=== PATIENT | female | born 1960 | race Caucasian/White ===

== ENCOUNTER 2017-10-14 12:01 | Day surgery (SDC) | payer OTHER ==
[~2017-10-14] VITALS: Ht 162.6 cm; Wt 82.4 kg
[~2017-10-14 12:01] MED LIST: AMLO5 PO; AMOCLA875 PO; ASPI81CH PO; ASPI81EC PO; ATOR20 PO; ATORVASTATIN CA20 MG PO; Amox Tr-K Clv1 EAC2 PO; Aspir 8181 MG PO; BENZ100A PO; CALCA500CH PO; CEPH500 PO; CETI5 PO; CHOL10002 PO; CIPR500 PO; CLOP75 PO; CODACE30 PO; CODACE60 PO; Citalopram HBr20 MG PO; Colace100 MG PO; Cyclobenzaprine5 MG PO; DOCU100 PO; Dilaudid 2 mg Ta2 MG PO; FLUC150A PO; HYDACE25S PR; HYDACE5 PO; HYDMOR2 PO; HYDMOR4 PO; IBUP200 PO; IBUP800 PO; INSULANPEN; INSULANPEN SC; LISI20 PO; LORA1 PO; LOSA50 PO; LOSARTAN POTASS50 MG PO; Lopressor 25 mg25 MG PO; MAGNESIUM250 MG PO; METF500 PO; METFORMIN HCL500 M1 PO; METO10 PO; METPRE4DP PO; METR250 PO; METR500 PO; Metformin HCl1000 MG PO; NAPR500 PO; OLME20 PO; OMEP20ER PO; ONDA4 PO; PREG100 PO; PREG25 PO; PROC10 PO; PROM25 PO; PSYL5.85P PO; Pravachol40 MG PO; RXHYDMOR2 PO; RXTRAM50 PO; SITA25T2 PO; SULTRIDS PO; TOCO400 PO; TRAM50 PO; TRIA80TC TOP; Ultram50 MG PO
[2017-10-14] MEDS ORDERED: GLIP5 (12:51)
[2018-06-30] MEDS ORDERED: ALBU90OI INH (13:29)
[2018-06-30] MEDS ORDERED: MUPIROCIN15 GM TP (13:30)
[2018-06-30] MEDS ORDERED: URSO300 PO (13:31)
[2018-06-30] MEDS ORDERED: ACETAMINOPHEN500 MG PO (13:31)
[2018-06-30] MEDS ORDERED: INSULANPEN (13:32)
[2018-06-30] MEDS ORDERED: HYDPAM25 PO (13:32)
[2018-06-30] MEDS ORDERED: GLIP5 PO (13:33)
[2018-06-30] MEDS ORDERED: Aspirin EC81 MG PO (13:33)
[2018-06-30] MEDS ORDERED: MAGNESIUM250 MG PO (13:33)
[2018-06-30] MEDS ORDERED: VITAMIN D32000 UNIT PO (13:33)
[2018-06-30] MEDS ORDERED: Pravachol80 MG PO (13:34)
[2018-06-30] MEDS ORDERED: METOPROLOL TA37.5 MG PO (13:34)
[2018-06-30] MEDS ORDERED: BENTYL PO (13:35)
[2018-06-30] MEDS ORDERED: CLOTRIMAZOLE TOP (13:36)
[2018-06-30] MEDS ORDERED: PREG50 PO (13:37)
[2018-06-30] MEDS ORDERED: Diclofenac Pota50 MG PO (13:37)
[2018-06-30] MEDS ORDERED: Tessalon200 MG PO (13:38)
[2018-07-05] MEDS ORDERED: HYDMOR4 PO (14:54)
[2018-07-05] MEDS ORDERED: Zofran Odt4 MG SL (14:54)
[2018-08-27] MEDS ORDERED: FENT200LOZ MM (10:27)
[2018-08-27] MEDS ORDERED: ONDA4ODT MM (10:27)
== END 2017-10-14 14:48 | disposition home or self-care (01) ==
LOC: ORSCSDS 12:01
PROVIDERS: Internal Medicine Gastroenterology
PROC: 0DBH8ZX Excision of Cecum, Via Natural or Artificial Opening Endoscopic, Diagnostic (ICD-10-PCS; principal; 2017-10-14 13:15)
PROC: 0DBM8ZX Excision of Descending Colon, Via Natural or Artificial Opening Endoscopic, Diagnostic (ICD-10-PCS; principal; 2017-10-14 13:15)
PROC: 0DBK8ZX Excision of Ascending Colon, Via Natural or Artificial Opening Endoscopic, Diagnostic (ICD-10-PCS; principal; 2017-10-14 13:15)
DX: R10.30 Lower abdominal pain, unspecified (principal); D12.4 Benign neoplasm of descending colon; D12.0 Benign neoplasm of cecum; D12.2 Benign neoplasm of ascending colon; R19.4 Change in bowel habit; R11.0 Nausea; I10 Essential (primary) hypertension; E11.9 Type 2 diabetes mellitus without complications; E78.00 Pure hypercholesterolemia, unspecified; Z87.891 Personal history of nicotine dependence; Z79.82 Long term (current) use of aspirin; Z79.899 Other long term (current) drug therapy
CPT/HCPCS: 82947; 88305; J7120

== ENCOUNTER 2018-05-11 21:12 | Emergency (ER) | payer OTHER ==
[~2018-05-11] VITALS: Ht 162.6 cm; Wt 82.5 kg
[~2018-05-11 21:12] MED LIST changes: +GLIP5
[2018-05-11] MEDS ORDERED: PREG50 PO (21:23)
== END 2018-05-11 22:30 | disposition home or self-care (01) ==
LOC: ER 21:12
DX: S63.501A Unspecified sprain of right wrist, initial encounter (principal); E11.9 Type 2 diabetes mellitus without complications; I10 Essential (primary) hypertension; Z88.8 Allergy status to other drugs, medicaments and biological substances; Z88.5 Allergy status to narcotic agent; Z79.899 Other long term (current) drug therapy; Z79.82 Long term (current) use of aspirin; Z79.4 Long term (current) use of insulin; W01.0XXA Fall on same level from slipping, tripping and stumbling without subsequent striking against object, initial encounter
CPT/HCPCS: 73110; 99283-25

== ENCOUNTER → 2018-06-18 | Outpatient (CLI) | payer OTHER ==
[~2018-06-18] MED LIST changes: +PREG50 PO
[2018-06-22 15:07] LABS: HPV 16 Negative (Negative); HPV 18 Negative (Negative); HPV OTHER HR TYPES Negative (Negative)
== END | disposition home or self-care (01) ==
LOC: LAB SHORT 11:53 → LAB 11:53
PROVIDERS: Family Medicine
DX: Z01.419 Encounter for gynecological examination (general) (routine) without abnormal findings (principal); N95.9 Unspecified menopausal and perimenopausal disorder
CPT/HCPCS: 87624; G0145

== ENCOUNTER 2019-01-12 09:21 | Day surgery (SDC) | payer OTHER ==
[~2019-01-12] VITALS: Ht 162.6 cm; Wt 88.2 kg
[~2019-01-12 09:21] MED LIST changes: +ACETAMINOPHEN500 MG PO; +ALBU90OI INH; +Aspirin EC81 MG PO; +BENTYL PO; +CLOTRIMAZOLE TOP; +Diclofenac Pota50 MG PO; +FENT200LOZ MM; +GLIP5 PO; +HYDPAM25 PO; +METOPROLOL TA37.5 MG PO; +MUPIROCIN15 GM TP; +ONDA4ODT MM; +Pravachol80 MG PO; +Tessalon200 MG PO; +URSO300 PO; +VITAMIN D32000 UNIT PO; +Zofran Odt4 MG SL
== END 2019-01-12 11:30 | disposition home or self-care (01) ==
LOC: ORSCSDS 09:21
PROVIDERS: Internal Medicine Gastroenterology
PROC: 0DB68ZX Excision of Stomach, Via Natural or Artificial Opening Endoscopic, Diagnostic (ICD-10-PCS; principal; 2019-01-12 10:30)
DX: R10.84 Generalized abdominal pain (principal); K29.80 Duodenitis without bleeding; K31.89 Other diseases of stomach and duodenum; K74.60 Unspecified cirrhosis of liver; K29.50 Unspecified chronic gastritis without bleeding; F41.8 Other specified anxiety disorders; K76.6 Portal hypertension; E11.9 Type 2 diabetes mellitus without complications; I10 Essential (primary) hypertension; E78.5 Hyperlipidemia, unspecified; G47.33 Obstructive sleep apnea (adult) (pediatric); E66.9 Obesity, unspecified; Z68.33 Body mass index [BMI] 33.0-33.9, adult; Z79.82 Long term (current) use of aspirin; Z79.4 Long term (current) use of insulin; Z79.899 Other long term (current) drug therapy
CPT/HCPCS: 82947; 88305; 88342; J2704; J7120

== ENCOUNTER → 2020-07-05 | Outpatient (CLI) | payer OTHER ==
[~2020-07-05] MED LIST changes: +BASAGLAR K100 UNIT/1 SC; +BETA.05TCA TOP; +CLOB.05TO; +CYCL10 PO; +DOXY100 PO; +FURO20 PO; +GUAI600T33 PO; +HYDHCL25 PO; +METFORMIN HCL500 M2 PO; +METOPROLOL TART25 MG PO; +POTA10T PO; +PREGABALIN100 MG PO; +TRULICITY0.75 MG/01 SC
[2020-07-05 19:02] LABS: BASOPHILS ABSOLUTE AUTO 0.03 K/mm3 (0.00-0.23); BASOPHILS PERCENT AUTO 1 % (0-2); EOSINOPHILS PERCENT AUTO 6 % (0-6); Hematocrit 35.1 % (33.0-51.0); Hemoglobin 10.8 g/dL (11.5-16.0); IMMATURE GRAN ABSOLUTE AUTO 0.02 K/mm3 (0.00-0.10); IMMATURE GRAN PERCENT AUTO 1 % (0-1); LYMPHOCYTES ABSOLUTE AUTO 1.44 K/mm3 (0.84-5.20); LYMPHOCYTES PERCENT AUTO 40 % (21-46); MONOCYTES ABSOLUTE AUTO 0.29 K/mm3 (0.16-1.47); MONOCYTES PERCENT AUTO 8 % (4-13); Mean Corpuscular HGB 24.3 pg (26.0-34.0); Mean Corpuscular HGB Conc 30.8 g/dL (31.5-36.5); Mean Corpuscular Volume 79 fL (80-100); Mean Platelet Volume 10.6 fL (9.1-12.4); NEUTROPHILS ABSOLUTE AUTO 1.65 K/mm3 (1.96-9.15); NEUTROPHILS PERCENT AUTO 45 % (41-73); Platelet Count 103 K/mm3 (150-400); RDW Coefficient Variation 17.1 % (11.7-14.2); RDW Standard Deviation 45.1 fL (35.1-46.3); Red Blood Cell Count 4.44 M/mm3 (3.80-5.20); White Blood Cell Count 3.63 K/mm3 (4.00-11.30)
[2020-07-05 19:48] LABS: Alanine Aminotransfer (ALT/SGP 40 U/L (12-78); Albumin, Blood 2.6 g/dL (3.4-5.0); Albumin/Globulin Ratio 0.8 (0.8-1.8); Alk Phos 176 U/L (50-136); Anion Gap 3 mmol/L (6-16); Aspartate Aminotrans (AST/SGOT 46 U/L (12-37); Bilirubin, Total 0.5 mg/dL (0.1-1.0); Blood Urea Nitrogen 15 mg/dL (8-24); CO2, Blood 30 mmol/L (21-32); Calcium, Blood 9.2 mg/dL (8.5-10.1); Chloride, Blood 111 mmol/L (98-108); Creatinine, Blood 0.65 mg/dL (0.40-1.00); Globulin, Blood 3.4 g/dL (2.2-4.0); Glomerular Filtration Rate >60 (60-); Glucose, Blood 176 mg/dL (70-99); Potassium, Blood 3.9 mmol/L (3.5-5.5); Sodium, Blood 144 mmol/L (136-145)
[2020-07-06 11:45] LABS: Troponin I 0.046 ng/mL (0.000-0.040)
== END ==
LOC: LAB 18:45 → LAB SHORT 18:45
PROVIDERS: Nurse Practitioner Family
DX: R06.02 Shortness of breath (principal); R05 Cough
CPT/HCPCS: 80053; 84484; 85025

== ENCOUNTER 2020-07-06 12:22 | Inpatient (IN) | payer OTHER ==
[~2020-07-06] VITALS: Ht 160 cm; Wt 90.7 kg
[~2020-07-06 12:22] MED LIST changes: -BETA.05TCA TOP; -CLOB.05TO; -CYCL10 PO; -DOXY100 PO; -FURO20 PO; -GUAI600T33 PO; -HYDHCL25 PO; -METFORMIN HCL500 M2 PO; -METOPROLOL TART25 MG PO; -POTA10T PO; -PREGABALIN100 MG PO; -TRULICITY0.75 MG/01 SC
[2020-07-06 12:47] LABS: BASOPHILS ABSOLUTE AUTO 0.03 K/mm3 (0.00-0.23); BASOPHILS PERCENT AUTO 1 % (0-2); EOSINOPHILS ABSOLUTE AUTO 0.11 K/mm3 (0.00-0.68); EOSINOPHILS PERCENT AUTO 2 % (0-6); Hematocrit 37.3 % (33.0-51.0); Hemoglobin 11.4 g/dL (11.5-16.0); IMMATURE GRAN ABSOLUTE AUTO 0.03 K/mm3 (0.00-0.10); IMMATURE GRAN PERCENT AUTO 1 % (0-1); LYMPHOCYTES ABSOLUTE AUTO 1.54 K/mm3 (0.84-5.20); LYMPHOCYTES PERCENT AUTO 30 % (21-46); MONOCYTES PERCENT AUTO 10 % (4-13); Mean Corpuscular HGB 24.5 pg (26.0-34.0); Mean Corpuscular HGB Conc 30.6 g/dL (31.5-36.5); Mean Corpuscular Volume 80 fL (80-100); Mean Platelet Volume 9.5 fL (9.1-12.4); NEUTROPHILS PERCENT AUTO 57 % (41-73); Platelet Count 97 K/mm3 (150-400); RDW Coefficient Variation 17.5 % (11.7-14.2); RDW Standard Deviation 45.9 fL (35.1-46.3); Red Blood Cell Count 4.66 M/mm3 (3.80-5.20); White Blood Cell Count 5.11 K/mm3 (4.00-11.30)
[2020-07-06] MEDS ORDERED: TRULICITY0.75 MG/01 SC (13:04)
[2020-07-06] MEDS ORDERED: URSO300 PO (13:05)
[2020-07-06 13:06] LABS: Alanine Aminotransfer (ALT/SGP 43 U/L (12-78); Albumin, Blood 2.8 g/dL (3.4-5.0); Albumin/Globulin Ratio 0.7 (0.8-1.8); Alk Phos 188 U/L (50-136); Anion Gap 6 mmol/L (6-16); Aspartate Aminotrans (AST/SGOT 52 U/L (12-37); Bilirubin, Total 0.8 mg/dL (0.1-1.0); Blood Urea Nitrogen 14 mg/dL (8-24); Bun/Creatinine Ratio 19.9 (12.0-20.0); CO2, Blood 26 mmol/L (21-32); Calcium, Blood 8.7 mg/dL (8.5-10.1); Chloride, Blood 109 mmol/L (98-108); Globulin, Blood 3.8 g/dL (2.2-4.0); Glomerular Filtration Rate >60 (60-); Glucose, Blood 235 mg/dL (70-99); Potassium, Blood 4.5 mmol/L (3.5-5.5); Sodium, Blood 141 mmol/L (136-145); Total Protein, Blood 6.6 g/dL (6.4-8.2); Troponin I 0.058 ng/mL (0.000-0.040)
[2020-07-06] MEDS ORDERED: BETA.05TCA TOP (13:07)
[2020-07-06] MEDS ORDERED: CLOB.05TO (13:08)
[2020-07-06] MEDS ORDERED: CYCL10 PO (13:08)
[2020-07-06] MEDS ORDERED: OMEP20ER PO (13:09)
[2020-07-06] MEDS ORDERED: BASAGLAR K100 UNIT/1 SC (14:45)
[2020-07-06] MEDS ORDERED: PREGABALIN100 MG PO (14:46)
[2020-07-06] MEDS ORDERED: METOPROLOL TART25 MG PO (14:47)
[2020-07-06] MEDS ORDERED: METFORMIN HCL500 M2 PO (14:48)
[2020-07-06] MEDS ORDERED: HYDHCL25 PO (14:48)
[2020-07-07 04:47] LABS: Hematocrit 32.4 % (33.0-51.0); Mean Corpuscular HGB 24.4 pg (26.0-34.0); Mean Corpuscular HGB Conc 30.9 g/dL (31.5-36.5); Mean Corpuscular Volume 79 fL (80-100); Mean Platelet Volume 10.5 fL (9.1-12.4); Platelet Count 76 K/mm3 (150-400); RDW Standard Deviation 46.5 fL (35.1-46.3)
[2020-07-07 05:09] LABS: Anion Gap 4 mmol/L (6-16); Blood Urea Nitrogen 18 mg/dL (8-24); Bun/Creatinine Ratio 29.8 (12.0-20.0); CO2, Blood 26 mmol/L (21-32); Calcium, Blood 8.1 mg/dL (8.5-10.1); Chloride, Blood 109 mmol/L (98-108); Glomerular Filtration Rate >60 (60-); Glucose, Blood 136 mg/dL (70-99); Sodium, Blood 139 mmol/L (136-145); Troponin I 0.051 ng/mL (0.000-0.040)
[2020-07-09 05:31] LABS: BASOPHILS ABSOLUTE AUTO 0.04 K/mm3 (0.00-0.23); BASOPHILS PERCENT AUTO 1 % (0-2); EOSINOPHILS ABSOLUTE AUTO 0.31 K/mm3 (0.00-0.68); EOSINOPHILS PERCENT AUTO 5 % (0-6); Hematocrit 31.6 % (33.0-51.0); Hemoglobin 9.8 g/dL (11.5-16.0); IMMATURE GRAN ABSOLUTE AUTO 0.05 K/mm3 (0.00-0.10); IMMATURE GRAN PERCENT AUTO 1 % (0-1); LYMPHOCYTES ABSOLUTE AUTO 1.24 K/mm3 (0.84-5.20); LYMPHOCYTES PERCENT AUTO 22 % (21-46); MONOCYTES ABSOLUTE AUTO 0.71 K/mm3 (0.16-1.47); MONOCYTES PERCENT AUTO 12 % (4-13); Mean Corpuscular HGB 25.1 pg (26.0-34.0); Mean Corpuscular Volume 81 fL (80-100); Mean Platelet Volume 10.2 fL (9.1-12.4); NEUTROPHILS ABSOLUTE AUTO 3.43 K/mm3 (1.96-9.15); NEUTROPHILS PERCENT AUTO 59 % (41-73); Platelet Count 69 K/mm3 (150-400); RDW Standard Deviation 50.8 fL (35.1-46.3); Red Blood Cell Count 3.91 M/mm3 (3.80-5.20); White Blood Cell Count 5.78 K/mm3 (4.00-11.30)
[2020-07-09 06:00] LABS: Percent Saturation 26.7 % (15.0-50.0)
[2020-07-09 06:06] LABS: Alanine Aminotransfer (ALT/SGP 25 U/L (12-78); Albumin, Blood 1.9 g/dL (3.4-5.0); Albumin/Globulin Ratio 0.5 (0.8-1.8); Alk Phos 123 U/L (50-136); Anion Gap 7 mmol/L (6-16); Aspartate Aminotrans (AST/SGOT 22 U/L (12-37); Blood Urea Nitrogen 23 mg/dL (8-24); Bun/Creatinine Ratio 36.6 (12.0-20.0); CO2, Blood 23 mmol/L (21-32); Calcium, Blood 8.2 mg/dL (8.5-10.1); Chloride, Blood 106 mmol/L (98-108); Creatinine, Blood 0.63 mg/dL (0.40-1.00); Globulin, Blood 3.5 g/dL (2.2-4.0); Glomerular Filtration Rate >60 (60-); Glucose, Blood 138 mg/dL (70-99); Potassium, Blood 4.4 mmol/L (3.5-5.5); Sodium, Blood 136 mmol/L (136-145); Total Protein, Blood 5.4 g/dL (6.4-8.2)
[2020-07-10 08:46] LABS: BASOPHILS ABSOLUTE AUTO 0.04 K/mm3 (0.00-0.23); BASOPHILS PERCENT AUTO 1 % (0-2); EOSINOPHILS PERCENT AUTO 7 % (0-6); Hematocrit 33.3 % (33.0-51.0); IMMATURE GRAN ABSOLUTE AUTO 0.02 K/mm3 (0.00-0.10); IMMATURE GRAN PERCENT AUTO 0 % (0-1); LYMPHOCYTES PERCENT AUTO 22 % (21-46); MONOCYTES ABSOLUTE AUTO 0.62 K/mm3 (0.16-1.47); MONOCYTES PERCENT AUTO 14 % (4-13); Mean Corpuscular HGB 24.6 pg (26.0-34.0); Mean Corpuscular Volume 82 fL (80-100); NEUTROPHILS ABSOLUTE AUTO 2.57 K/mm3 (1.96-9.15); NEUTROPHILS PERCENT AUTO 57 % (41-73); Platelet Count 88 K/mm3 (150-400); RDW Coefficient Variation 18.4 % (11.7-14.2); RDW Standard Deviation 53.1 fL (35.1-46.3); Red Blood Cell Count 4.06 M/mm3 (3.80-5.20); White Blood Cell Count 4.55 K/mm3 (4.00-11.30)
[2020-07-10 08:55] LABS: International Normalized Ratio 1.32; Prothrombin Time Results 13.9 Sec (9.7-11.5)
[2020-07-10 09:02] LABS: Albumin/Globulin Ratio 0.6 (0.8-1.8); Bilirubin, Total 0.6 mg/dL (0.1-1.0); Bun/Creatinine Ratio 29.6 (12.0-20.0); Calcium, Blood 8.6 mg/dL (8.5-10.1); Creatinine, Blood 1.08 mg/dL (0.40-1.00); Globulin, Blood 3.4 g/dL (2.2-4.0); Potassium, Blood 4.3 mmol/L (3.5-5.5); Total Protein, Blood 5.4 g/dL (6.4-8.2)
[2020-07-11 05:06] LABS: BASOPHILS ABSOLUTE AUTO 0.03 K/mm3 (0.00-0.23); BASOPHILS PERCENT AUTO 1 % (0-2); EOSINOPHILS ABSOLUTE AUTO 0.32 K/mm3 (0.00-0.68); EOSINOPHILS PERCENT AUTO 6 % (0-6); Hematocrit 31.4 % (33.0-51.0); IMMATURE GRAN ABSOLUTE AUTO 0.03 K/mm3 (0.00-0.10); IMMATURE GRAN PERCENT AUTO 1 % (0-1); LYMPHOCYTES ABSOLUTE AUTO 1.35 K/mm3 (0.84-5.20); LYMPHOCYTES PERCENT AUTO 23 % (21-46); MONOCYTES ABSOLUTE AUTO 0.79 K/mm3 (0.16-1.47); MONOCYTES PERCENT AUTO 14 % (4-13); Mean Corpuscular HGB 25.4 pg (26.0-34.0); Mean Corpuscular HGB Conc 31.8 g/dL (31.5-36.5); Mean Corpuscular Volume 80 fL (80-100); Mean Platelet Volume 9.4 fL (9.1-12.4); NEUTROPHILS ABSOLUTE AUTO 3.29 K/mm3 (1.96-9.15); NEUTROPHILS PERCENT AUTO 57 % (41-73); Platelet Count 96 K/mm3 (150-400); RDW Coefficient Variation 18.5 % (11.7-14.2); Red Blood Cell Count 3.94 M/mm3 (3.80-5.20); White Blood Cell Count 5.81 K/mm3 (4.00-11.30)
[2020-07-11 05:29] LABS: Alanine Aminotransfer (ALT/SGP 21 U/L (12-78); Albumin, Blood 1.8 g/dL (3.4-5.0); Albumin/Globulin Ratio 0.5 (0.8-1.8); Alk Phos 117 U/L (50-136); Anion Gap 9 mmol/L (6-16); Aspartate Aminotrans (AST/SGOT 24 U/L (12-37); Bilirubin, Total 0.6 mg/dL (0.1-1.0); Blood Urea Nitrogen 30 mg/dL (8-24); Bun/Creatinine Ratio 35.2 (12.0-20.0); CO2, Blood 22 mmol/L (21-32); Calcium, Blood 7.9 mg/dL (8.5-10.1); Chloride, Blood 104 mmol/L (98-108); Creatinine, Blood 0.85 mg/dL (0.40-1.00); Globulin, Blood 3.6 g/dL (2.2-4.0); Glomerular Filtration Rate >60 (60-); Glucose, Blood 96 mg/dL (70-99); Sodium, Blood 135 mmol/L (136-145); Total Protein, Blood 5.4 g/dL (6.4-8.2)
[2020-07-11 15:23] LABS: Automated BF RBC Count 0.056 M/mm3 (0-0); Automated BF WBC Count 2.774 K/mm3 (0-999); Body Fluid WBC Count 2774 /mm3 (0-999); RBC Count, Body Fluid 56000 /mm3 (0-0)
[2020-07-11 16:19] LABS: pH, Body Fluid 7.5
[2020-07-11 16:33] LABS: Total Cell Count, Body Fluid 100
[2020-07-11 16:34] LABS: Appearance, Body Fluid Bloody (Clear); Color, Body Fluid Red (None-Yellow)
[2020-07-11 16:51] LABS: Albumin, Body Fluid 0.9 g/dL; Glucose, Body Fluid 85 mg/dL; Lactate Dehydrogenase, Body Fl 382 U/L; Protein, Body Fluid 2.1 g/dL
[2020-07-12 08:18] LABS: BASOPHILS ABSOLUTE AUTO 0.03 K/mm3 (0.00-0.23); BASOPHILS PERCENT AUTO 1 % (0-2); EOSINOPHILS ABSOLUTE AUTO 0.23 K/mm3 (0.00-0.68); EOSINOPHILS PERCENT AUTO 4 % (0-6); Hematocrit 33.1 % (33.0-51.0); Hemoglobin 10.2 g/dL (11.5-16.0); IMMATURE GRAN ABSOLUTE AUTO 0.04 K/mm3 (0.00-0.10); IMMATURE GRAN PERCENT AUTO 1 % (0-1); LYMPHOCYTES ABSOLUTE AUTO 1.48 K/mm3 (0.84-5.20); LYMPHOCYTES PERCENT AUTO 27 % (21-46); MONOCYTES ABSOLUTE AUTO 0.83 K/mm3 (0.16-1.47); MONOCYTES PERCENT AUTO 15 % (4-13); Mean Corpuscular HGB 24.8 pg (26.0-34.0); Mean Corpuscular HGB Conc 30.8 g/dL (31.5-36.5); Mean Corpuscular Volume 80 fL (80-100); Mean Platelet Volume 9.3 fL (9.1-12.4); NEUTROPHILS ABSOLUTE AUTO 2.91 K/mm3 (1.96-9.15); NEUTROPHILS PERCENT AUTO 53 % (41-73); Platelet Count 123 K/mm3 (150-400); RDW Standard Deviation 51.8 fL (35.1-46.3); Red Blood Cell Count 4.12 M/mm3 (3.80-5.20); White Blood Cell Count 5.52 K/mm3 (4.00-11.30)
[2020-07-13 04:43] LABS: BASOPHILS ABSOLUTE AUTO 0.04 K/mm3 (0.00-0.23); BASOPHILS PERCENT AUTO 1 % (0-2); EOSINOPHILS ABSOLUTE AUTO 0.26 K/mm3 (0.00-0.68); EOSINOPHILS PERCENT AUTO 6 % (0-6); Hemoglobin 9.3 g/dL (11.5-16.0); IMMATURE GRAN ABSOLUTE AUTO 0.03 K/mm3 (0.00-0.10); IMMATURE GRAN PERCENT AUTO 1 % (0-1); LYMPHOCYTES ABSOLUTE AUTO 1.49 K/mm3 (0.84-5.20); LYMPHOCYTES PERCENT AUTO 36 % (21-46); MONOCYTES ABSOLUTE AUTO 0.57 K/mm3 (0.16-1.47); MONOCYTES PERCENT AUTO 14 % (4-13); Mean Corpuscular HGB 25.4 pg (26.0-34.0); Mean Corpuscular HGB Conc 32.1 g/dL (31.5-36.5); Mean Corpuscular Volume 79 fL (80-100); Mean Platelet Volume 9.2 fL (9.1-12.4); NEUTROPHILS ABSOLUTE AUTO 1.77 K/mm3 (1.96-9.15); NEUTROPHILS PERCENT AUTO 43 % (41-73); Platelet Count 102 K/mm3 (150-400); RDW Coefficient Variation 18.9 % (11.7-14.2); RDW Standard Deviation 52.7 fL (35.1-46.3); Red Blood Cell Count 3.66 M/mm3 (3.80-5.20); White Blood Cell Count 4.16 K/mm3 (4.00-11.30)
[2020-07-13 05:10] LABS: Alanine Aminotransfer (ALT/SGP 21 U/L (12-78); Albumin, Blood 1.7 g/dL (3.4-5.0); Albumin/Globulin Ratio 0.5 (0.8-1.8); Alk Phos 106 U/L (50-136); Anion Gap 8 mmol/L (6-16); Aspartate Aminotrans (AST/SGOT 34 U/L (12-37); Bilirubin, Total 0.5 mg/dL (0.1-1.0); Blood Urea Nitrogen 21 mg/dL (8-24); Bun/Creatinine Ratio 29.1 (12.0-20.0); CO2, Blood 23 mmol/L (21-32); Chloride, Blood 105 mmol/L (98-108); Creatinine, Blood 0.72 mg/dL (0.40-1.00); Globulin, Blood 3.4 g/dL (2.2-4.0); Glomerular Filtration Rate >60 (60-); Glucose, Blood 58 mg/dL (70-99); Potassium, Blood 3.7 mmol/L (3.5-5.5); Sodium, Blood 136 mmol/L (136-145); Total Protein, Blood 5.1 g/dL (6.4-8.2)
[2020-07-14 05:19] LABS: BASOPHILS ABSOLUTE AUTO 0.03 K/mm3 (0.00-0.23); BASOPHILS PERCENT AUTO 1 % (0-2); EOSINOPHILS ABSOLUTE AUTO 0.17 K/mm3 (0.00-0.68); EOSINOPHILS PERCENT AUTO 5 % (0-6); Hematocrit 27.8 % (33.0-51.0); Hemoglobin 8.7 g/dL (11.5-16.0); IMMATURE GRAN ABSOLUTE AUTO 0.02 K/mm3 (0.00-0.10); IMMATURE GRAN PERCENT AUTO 1 % (0-1); LYMPHOCYTES ABSOLUTE AUTO 0.93 K/mm3 (0.84-5.20); LYMPHOCYTES PERCENT AUTO 29 % (21-46); MONOCYTES PERCENT AUTO 13 % (4-13); Mean Corpuscular HGB 25.1 pg (26.0-34.0); Mean Corpuscular HGB Conc 31.3 g/dL (31.5-36.5); Mean Corpuscular Volume 80 fL (80-100); Mean Platelet Volume 9.5 fL (9.1-12.4); NEUTROPHILS ABSOLUTE AUTO 1.61 K/mm3 (1.96-9.15); NEUTROPHILS PERCENT AUTO 51 % (41-73); Platelet Count 90 K/mm3 (150-400); RDW Standard Deviation 54.4 fL (35.1-46.3); Red Blood Cell Count 3.47 M/mm3 (3.80-5.20); White Blood Cell Count 3.16 K/mm3 (4.00-11.30)
[2020-07-14 05:49] LABS: Alanine Aminotransfer (ALT/SGP 22 U/L (12-78); Albumin, Blood 1.8 g/dL (3.4-5.0); Albumin/Globulin Ratio 0.5 (0.8-1.8); Alk Phos 96 U/L (50-136); Anion Gap 8 mmol/L (6-16); Aspartate Aminotrans (AST/SGOT 40 U/L (12-37); Bilirubin, Total 0.5 mg/dL (0.1-1.0); Blood Urea Nitrogen 27 mg/dL (8-24); Bun/Creatinine Ratio 28.6 (12.0-20.0); CO2, Blood 23 mmol/L (21-32); Calcium, Blood 8.1 mg/dL (8.5-10.1); Chloride, Blood 104 mmol/L (98-108); Creatinine, Blood 0.94 mg/dL (0.40-1.00); Globulin, Blood 3.3 g/dL (2.2-4.0); Glomerular Filtration Rate >60 (60-); Glucose, Blood 87 mg/dL (70-99); Potassium, Blood 3.8 mmol/L (3.5-5.5); Sodium, Blood 135 mmol/L (136-145); Total Protein, Blood 5.1 g/dL (6.4-8.2)
[2020-07-14 21:23] LABS: Source, Urine Voided
[2020-07-14 21:27] LABS: Appearance, Urine Clear (Clear); Bilirubin, Urine Neg (Neg); Blood, Urine 1+ (Neg); Color, Urine Amber (P-Yellow); Glucose Qualitative, Urine Neg (Neg); Ketones, Urine Neg (Neg); Leukocyte Esterase, Urine 2+ (Neg); Nitrite, Urine Neg (Neg); Protein, Urine 1+ (Neg); Specific Gravity, Urine 1.025 (1.003-1.022); Urobilinogen, Urine NORM (Normal)
[2020-07-14 21:34] LABS: Bacteria Mod /hpf; Hyaline Casts 0-2 /lpf (0-2); Red Blood Cells, Urine 0-2 /hpf (0-2); Squamous Epithelial Cells Few /hpf (Few)
[2020-07-15 05:27] LABS: Hematocrit 30.6 % (33.0-51.0); Hemoglobin 9.8 g/dL (11.5-16.0); Mean Corpuscular HGB 25.5 pg (26.0-34.0); Mean Corpuscular Volume 80 fL (80-100); Platelet Count 102 K/mm3 (150-400); RDW Coefficient Variation 19.2 % (11.7-14.2); RDW Standard Deviation 54.1 fL (35.1-46.3); Red Blood Cell Count 3.84 M/mm3 (3.80-5.20); White Blood Cell Count 4.13 K/mm3 (4.00-11.30)
[2020-07-15 05:55] LABS: Anion Gap 8 mmol/L (6-16); Blood Urea Nitrogen 23 mg/dL (8-24); Bun/Creatinine Ratio 30.1 (12.0-20.0); CO2, Blood 23 mmol/L (21-32); Calcium, Blood 8.6 mg/dL (8.5-10.1); Chloride, Blood 107 mmol/L (98-108); Creatinine, Blood 0.76 mg/dL (0.40-1.00); Glomerular Filtration Rate >60 (60-); Glucose, Blood 81 mg/dL (70-99); Potassium, Blood 4.1 mmol/L (3.5-5.5); Sodium, Blood 138 mmol/L (136-145)
[2020-07-16] MEDS ORDERED: FURO20 PO (14:04)
[2020-07-16] MEDS ORDERED: DOXY100 PO (14:04)
[2020-07-16] MEDS ORDERED: GUAI600T33 PO (14:05)
[2020-07-16] MEDS ORDERED: POTA10T PO (14:06)
== END 2020-07-16 15:28 | disposition home health service (06) | DRG 871 ==
LOC: ER 12:22 → MEDS 15:28
PROVIDERS: Emergency Medicine; Internal Medicine; ADMIT Internal Medicine
PROC: 0W993ZZ Drainage of Right Pleural Cavity, Percutaneous Approach (ICD-10-PCS; principal; 2020-07-11)
DX: A41.9 Sepsis, unspecified organism (principal); J96.01 Acute respiratory failure with hypoxia; J18.9 Pneumonia, unspecified organism; I50.33 Acute on chronic diastolic (congestive) heart failure; E87.2 Acidosis; I24.8 Other forms of acute ischemic heart disease; R65.20 Severe sepsis without septic shock; K74.69 Other cirrhosis of liver; Z95.1 Presence of aortocoronary bypass graft; E11.9 Type 2 diabetes mellitus without complications; I11.0 Hypertensive heart disease with heart failure; Z20.828 Contact with and (suspected) exposure to other viral communicable diseases
CPT/HCPCS: 32555; 36415; 71045; 71046; 71260; 73030; 80048; 80053; 81001; 82042; 82728; 82945; 82947; 83540; 83550; 83605; 83615; 83880; 83986; 84145; 84157; 84484; 85025; 85027; 85610; 87040; 87070; 87077; 87086; 87186; 87205; 87493; 89051; 93005; 93010; 94640; 94760; 96374; 97110; 97116; 97162; 97165; 97530; 97535; 99285-25; A9270; A9270-GY; J0456; J0696; J1650; J1885; J1940; J2916; J3010; J7050; J7120; P9046; Q9967; U0003

== ENCOUNTER 2020-09-29 18:34 | Inpatient (IN) | payer OTHER ==
[~2020-09-29] VITALS: Ht 160 cm; Wt 82.5 kg
[~2020-09-29 18:34] MED LIST changes: +ACET325 PO; +Actigall300 MG PO; +BETA.05TCA TOP; +CALCIUM 600 +1 EAC7 PO; +CLOB.05TO; +CYCL10 PO; +DOXY100 PO; +FURO20 PO; +GUAI600T33 PO; +HYDHCL25 PO; +KLOR-CON M1010 MEQ PO; +METFORMIN HCL500 M2 PO; +METO25 PO; +METOPROLOL TART25 MG PO; +NITR.4SL SL; +POTA10T PO; +PREGABALIN100 MG PO; +ROPINIROLE HCL0.5 MG PO; +TOCO1000 PO; +TRULICITY0.75 MG/01 SC; +ZOLOFT50 MG PO
[2020-09-29 19:53] LABS: BASOPHILS ABSOLUTE AUTO 0.05 K/mm3 (0.00-0.23); BASOPHILS PERCENT AUTO 1 % (0-2); EOSINOPHILS ABSOLUTE AUTO 0.28 K/mm3 (0.00-0.68); EOSINOPHILS PERCENT AUTO 7 % (0-6); Hematocrit 42.1 % (33.0-51.0); Hemoglobin 13.8 g/dL (11.5-16.0); IMMATURE GRAN ABSOLUTE AUTO 0.01 K/mm3 (0.00-0.10); IMMATURE GRAN PERCENT AUTO 0 % (0-1); LYMPHOCYTES PERCENT AUTO 50 % (21-46); MONOCYTES ABSOLUTE AUTO 0.35 K/mm3 (0.16-1.47); MONOCYTES PERCENT AUTO 8 % (4-13); Mean Corpuscular HGB 27.9 pg (26.0-34.0); Mean Corpuscular HGB Conc 32.8 g/dL (31.5-36.5); Mean Corpuscular Volume 85 fL (80-100); Mean Platelet Volume 10.4 fL (9.1-12.4); NEUTROPHILS ABSOLUTE AUTO 1.42 K/mm3 (1.96-9.15); NEUTROPHILS PERCENT AUTO 34 % (41-73); Platelet Count 95 K/mm3 (150-400); RDW Coefficient Variation 17.2 % (11.7-14.2); RDW Standard Deviation 52.7 fL (35.1-46.3); Red Blood Cell Count 4.94 M/mm3 (3.80-5.20); White Blood Cell Count 4.21 K/mm3 (4.00-11.30)
[2020-09-29 20:05] LABS: International Normalized Ratio 1.33
[2020-09-29 20:06] LABS: Alanine Aminotransfer (ALT/SGP 44 U/L (12-78); Albumin, Blood 2.4 g/dL (3.4-5.0); Albumin/Globulin Ratio 0.7 (0.8-1.8); Alk Phos 148 U/L (50-136); Anion Gap 10 mmol/L (6-16); Aspartate Aminotrans (AST/SGOT 89 U/L (12-37); Bilirubin, Total 1.3 mg/dL (0.1-1.0); Blood Urea Nitrogen 42 mg/dL (8-24); Bun/Creatinine Ratio 42.2 (12.0-20.0); CO2, Blood 24 mmol/L (21-32); Calcium, Blood 9.1 mg/dL (8.5-10.1); Chloride, Blood 105 mmol/L (98-108); Globulin, Blood 3.5 g/dL (2.2-4.0); Glomerular Filtration Rate >60 (60-); Glucose, Blood 166 mg/dL (70-99); Potassium, Blood 3.5 mmol/L (3.5-5.5); Sodium, Blood 139 mmol/L (136-145); Total Protein, Blood 5.9 g/dL (6.4-8.2)
[2020-09-29 21:03] LABS: Troponin I 0.063 ng/mL (0.000-0.040)
[2020-09-29 23:16] LABS: Source, Urine Clean Catch
[2020-09-29 23:22] LABS: Blood, Urine 1+ (Neg); Glucose Qualitative, Urine Neg (Neg); Ketones, Urine 1+ (Neg); Leukocyte Esterase, Urine 3+ (Neg); Nitrite, Urine Neg (Neg); Protein, Urine 1+ (Neg); Urobilinogen, Urine 1+ (Normal)
[2020-09-29 23:30] LABS: Appearance, Urine Hazy (Clear); Bilirubin, Urine 1+ (Neg); Color, Urine Amber (P-Yellow)
[2020-09-29 23:32] LABS: Bacteria Many /hpf; Red Blood Cells, Urine 0-2 /hpf (0-2); Squamous Epithelial Cells Mod /hpf (Few); White Blood Cells, Urine 50-100 /hpf (0-5); Yeast/Fungi Urine Many /hpf
[2020-09-29 23:46] LABS: U Amphetamine Screen Not Detected; U Barbituate Screen Not Detected; U Benzodiazapine Screen Not Detected; U Buprenorphine Screen Not Detected; U Cannabinoids Screen Not Detected; U Cocaine Screen Not Detected; U Methadone Screen Not Detected; U Methamphetamine Screen Not Detected; U Opiates Screen Not Detected; U Oxycodone Screen Not Detected; U Phencyclidine Screen Not Detected; U Propoxyphene Screen Not Detected
[2020-09-30 04:00] LABS: Alanine Aminotransfer (ALT/SGP 36 U/L (12-78); Albumin, Blood 2.1 g/dL (3.4-5.0); Albumin/Globulin Ratio 0.7 (0.8-1.8); Alk Phos 126 U/L (50-136); Anion Gap 8 mmol/L (6-16); Aspartate Aminotrans (AST/SGOT 70 U/L (12-37); Bilirubin, Total 1.1 mg/dL (0.1-1.0); Blood Urea Nitrogen 40 mg/dL (8-24); Bun/Creatinine Ratio 44.5 (12.0-20.0); CO2, Blood 25 mmol/L (21-32); Calcium, Blood 8.3 mg/dL (8.5-10.1); Chloride, Blood 107 mmol/L (98-108); Glomerular Filtration Rate >60 (60-); Glucose, Blood 136 mg/dL (70-99); Potassium, Blood 3.2 mmol/L (3.5-5.5); Sodium, Blood 140 mmol/L (136-145); Total Protein, Blood 5.1 g/dL (6.4-8.2)
--- NOTE | 2020-09-30 05:44 | NUR ---
CALL PLACED TO DR GALVAN, HOSPITALIST TIRE MOUNTER, REGARDING PT HYPOTENSION, ORDERS RECEIVED FOR LR 1000 ML BOLUS NOW, RATE INCREASED ON CURRENT LR TO 999, WILL RUN X 1 LITER AND MONITOR PER ORDERS.
--- NOTE | 2020-09-30 05:56 | NUR ---
PT NEW ADMIT THIS SHIFT FOR HYPOTENSION AND UROSEPSIS. SHE IS ALERT AND ORIENTED, SPEAKING IN FULL SENTENCES, DENIES DIZZINESS/VERTIGO, DENIES SOB/DYSPNEA, DENIES CP/PRESSURE, STATES THAT SHE JUST FEELS TIRED AND WEAK. SHE HAS BEEN HYPOTENSIVE SINCE ARRIVAL, LR ORDERED AT 125 ML/HR WITH LITTLE TO NO IMPROVEMENT, DR GALVAN IS NOTIFIED AND BOLUS IS ORDERED. SHE DENIES N/V. PULSES ARE FAINT BUT PALPABLE, SINUS RHYTHM, NO PERIPHERAL EDEMA NOTED, BRISK CAP REFILL. LEFT LUNG CLEAR THROUGHOUT, RIGHT DIM MID TO BASE BUT OTHERWISE CLEAR, SATS ARE MAINTAINING ON ROOM AIR, NO VISIBLE INCREASED WORK OF BREATHING. ABD DISTENDED, HYPOACTIVE BOWEL TONES. NONTENDER TO PALP. NO VOID OF THIS TIME.
[2020-09-30 11:33] LABS: Influenza A, PCR Negative (NEGATIVE); Influenza B, PCR Negative (NEGATIVE); Resp Syncytial Virus, PCR Negative (NEGATIVE); SARS-Cov-2 (COVID-19) PCR, MMC Negative (NEGATIVE)
--- NOTE | 2020-09-30 11:39 | NUR ---
AM NOTE... ASSUMED CARE OF PT APROX 0700, PT WAS ADMITTED FOR UROSEPSIS AND FOUND TO HAVE LARGE PLURAL EFFUSION ON THE RIGHT SIDE. L/S ARE CLEAR IN THE UPPER LOBES DIM TO THE MID/LOWER RIGHT SIDE. PT IS ON RA WITH O2 SATS>90%. PT IS IN NSR IN THE 70'S-90'S, BP HAS BEEN SOFT WITH SBP BETWEEN 80-110 BUT MAPS HAVE BEEN >65. BT PRESENT AND HYPERACTIVE,ABD IS SOFT AND NONTENDER TO PALP. PT DENIES ANY CHEST PAIN/PRESSURE N/V OR SOB. PT IS A&Ox4 BUT SAYS SHE FEELS "VERY SLEEPY" PT IS EASILY WOKEN BY VERBAL STIMULI WHEN SHE IS SLEEPING. PT IS TO HAVE AN U.S. GUIDED THORACENTESIS TODAY. PT HAS BEEN A SBA TO THE TOILET TO VOID. PT HAD A NEGATIVE COVID TEST THIS AM. CALL LIGHT IN REACH WILL CONTINUE TO MONITOR.
--- NOTE | 2020-09-30 15:34 | NUR ---
PT UPDATE... PT HAS RETURNED FROM HER THORACENTESIS, SHE TOLERATED THE PROCEDURE WELL PER THE Harri SOUND TECH, PT'S VS STABLE 1.4L WERE REMOVED. PT HAD POST PROCEDURE CHEST XRAY DONE AND THEN RETURNED TO THE ROOM. WILL CONTINUE TO MONITOR.
--- NOTE | 2020-09-30 18:39 | NUR ---
SHIFT SUMMARY... NO ACUTE NEGATIVE CHANGES NOTED THIS SHIFT. PT'S VS HAVE IMPROVED OVER THE SHIFT, PT'S VS HAVE BEEN STABLE BUT BP HAS BEEN A LITTLE SOFT. AFTER THE PT RETURNED FROM HER THORACENTESIS AT 1445 SHE STATED SHE "FEELS A WHOLE LOT BETTER." PT'S LAST SBP WAS 126. THE PT WAS STARTED ON LACTULOSE D/T ELEVATED AMMONIA LEVELS. PT HAS BEEN SBA TO THE TOILET IN THE ROOM. PT'S SON WAS AT THE BEDSIDE FOR APROX 2 HOURS TO VISIT. WILL CONTINUE TO MONITOR UNTIL REPORT IS GIVEN TO ONCOMING RN.
--- NOTE | 2020-09-30 18:55 | NUR ---
ASSUMED CARE OF PT, BEDSIDE REPORT RECEIVED. PT IS RESTING QUIETLY RECLINING IN BED, DENIES NEEDS AT THIS TIME, STATES THAT SHE IS FEELING MUCH IMPROVED FROM ADMIT. STATUS CHANGE NOTED FROM PCU TO MED WITH TELE.
--- NOTE | 2020-09-30 23:07 | NUR ---
ICU TRANSFER PT ICU TRANSFER TO MEDICAL FLOOR RM 302. REPORT TAKEN FROM NUCLEAR OPERATIONS SPECIALIST TO ASSUME CARE OF PT. PT SETTLED IN ROOM WITH BELONGINGS IN PLACE. PT RESTING COMFORTABLY IN BED AND DENIES NEEDS. CALL LIGHT WITHIN REACH.
--- NOTE | 2020-10-01 04:51 | NUR ---
SHIFT SUMMARY PT ICU TRANSFER THIS SHIFT. SHE HAS RESTED COMFORTABLY SINCE ARRIVING TO THE UNIT AND HAS DENIED NEEDS. ASSESSMENT REMAINS UNCHANGED. PT A/OX4, CALLS APPROPRIATLY. VITALS STABLE. BED IN LOWEST POSITION, CALL LIGHT WITHIN REACH.
[2020-10-01 05:05] LABS: BASOPHILS ABSOLUTE AUTO 0.03 K/mm3 (0.00-0.23); BASOPHILS PERCENT AUTO 1 % (0-2); EOSINOPHILS ABSOLUTE AUTO 0.17 K/mm3 (0.00-0.68); EOSINOPHILS PERCENT AUTO 6 % (0-6); Hematocrit 36.6 % (33.0-51.0); Hemoglobin 12.1 g/dL (11.5-16.0); IMMATURE GRAN PERCENT AUTO 0 % (0-1); LYMPHOCYTES ABSOLUTE AUTO 1.19 K/mm3 (0.84-5.20); LYMPHOCYTES PERCENT AUTO 41 % (21-46); MONOCYTES ABSOLUTE AUTO 0.28 K/mm3 (0.16-1.47); MONOCYTES PERCENT AUTO 10 % (4-13); Mean Corpuscular HGB 28.3 pg (26.0-34.0); Mean Corpuscular HGB Conc 33.1 g/dL (31.5-36.5); Mean Corpuscular Volume 86 fL (80-100); Mean Platelet Volume 10.2 fL (9.1-12.4); NEUTROPHILS ABSOLUTE AUTO 1.25 K/mm3 (1.96-9.15); NEUTROPHILS PERCENT AUTO 43 % (41-73); Platelet Count 62 K/mm3 (150-400); RDW Standard Deviation 53.6 fL (35.1-46.3); Red Blood Cell Count 4.27 M/mm3 (3.80-5.20); White Blood Cell Count 2.92 K/mm3 (4.00-11.30)
[2020-10-01 05:36] LABS: Anion Gap 5 mmol/L (6-16); Blood Urea Nitrogen 24 mg/dL (8-24); Bun/Creatinine Ratio 39.2 (12.0-20.0); CO2, Blood 26 mmol/L (21-32); Calcium, Blood 8.2 mg/dL (8.5-10.1); Chloride, Blood 111 mmol/L (98-108); Creatinine, Blood 0.61 mg/dL (0.40-1.00); Glomerular Filtration Rate >60 (60-); Glucose, Blood 154 mg/dL (70-99); Magnesium, Blood 1.2 mg/dL (1.6-2.4); Phosphorus, Blood 1.7 mg/dL (2.5-4.9); Potassium, Blood 3.5 mmol/L (3.5-5.5); Sodium, Blood 142 mmol/L (136-145)
[2020-10-01 08:19] LABS: Thyroid Stimulating Hormone 8.36 uIU/mL (0.360-4.800)
--- NOTE | 2020-10-01 16:58 | NUR ---
SHIFT SUMMARY PATIENT DENIES PAIN, NAUSEA, AND SHORTNESS OF BREATH. PATIENT UP SBA FOR LINE MANAGEMENT TO BR. PATIENT EATING AND DRINKING WELL. PATIENT REPORTS FEELING TIRED BUT BETTER THAN PREVIOUS DAY. PATIENT ALERT AND ORIENTED. HAD A VISITOR IN THE AFTERNOON.
--- NOTE | 2020-10-01 22:06 | NUR ---
HELD HS LACTULOSE D/T PT ADMITTING TO X5 LOOSE BM'S AND X1 LARGE FORMED BM ALREADY TODAY.
[2020-10-02 04:41] LABS: BASOPHILS ABSOLUTE AUTO 0.04 K/mm3 (0.00-0.23); BASOPHILS PERCENT AUTO 1 % (0-2); EOSINOPHILS ABSOLUTE AUTO 0.26 K/mm3 (0.00-0.68); EOSINOPHILS PERCENT AUTO 8 % (0-6); Hematocrit 35.7 % (33.0-51.0); Hemoglobin 11.6 g/dL (11.5-16.0); IMMATURE GRAN PERCENT AUTO 0 % (0-1); LYMPHOCYTES PERCENT AUTO 48 % (21-46); MONOCYTES PERCENT AUTO 9 % (4-13); Mean Corpuscular HGB 28.4 pg (26.0-34.0); Mean Corpuscular HGB Conc 32.5 g/dL (31.5-36.5); Mean Corpuscular Volume 87 fL (80-100); Mean Platelet Volume 10.3 fL (9.1-12.4); NEUTROPHILS ABSOLUTE AUTO 1.11 K/mm3 (1.96-9.15); NEUTROPHILS PERCENT AUTO 34 % (41-73); Platelet Count 54 K/mm3 (150-400); RDW Coefficient Variation 16.9 % (11.7-14.2); RDW Standard Deviation 53.9 fL (35.1-46.3); Red Blood Cell Count 4.09 M/mm3 (3.80-5.20); White Blood Cell Count 3.31 K/mm3 (4.00-11.30)
--- NOTE | 2020-10-02 04:43 | NUR ---
SUMMARY: A/OX4, CALLS APPROPRIATELY AND IS PLEASANT/COOPERATIVE W/CARE. SHE'S DENIED PAIN AND ALL OTHER COMPLAINTS THIS SHIFT. PT IS SBA TO TOILET BUT IS OTHERWISE INDEPENDENT IN ROOM. LACTULOSE WAS HELD AT HS PER PT REPORT OF X4 LOOSE BM'S AND X1 LARGE FORMED BM DURING DAY SHIFT. ABDO IS DISTENDED BUT SOFT AND NONTENDER, PT DENIES N/V. ABX BEING RECIEVED ON DAY SHIFT FOR TX OF UROSEPSIS. VSS/AFEBRILE AND NO ACUTE CHANGES. WCTM AND REPORT TO DAY RN.
[2020-10-02 05:06] LABS: Albumin, Blood 1.9 g/dL (3.4-5.0); Anion Gap 8 mmol/L (6-16); Blood Urea Nitrogen 17 mg/dL (8-24); Bun/Creatinine Ratio 31.4 (12.0-20.0); CO2, Blood 24 mmol/L (21-32); Chloride, Blood 111 mmol/L (98-108); Creatinine, Blood 0.54 mg/dL (0.40-1.00); Glomerular Filtration Rate >60 (60-); Glucose, Blood 127 mg/dL (70-99); Magnesium, Blood 1.3 mg/dL (1.6-2.4); Phosphorus, Blood 2.3 mg/dL (2.5-4.9); Potassium, Blood 3.4 mmol/L (3.5-5.5); Sodium, Blood 143 mmol/L (136-145)
[2020-10-02] MEDS ORDERED: METO25 PO (13:24)
[2020-10-02] MEDS ORDERED: FOLI400 PO (13:26)
[2020-10-02] MEDS ORDERED: LACT10SY PO (13:27)
--- NOTE | 2020-10-02 14:55 | NUR ---
Patient is sitting on a chair and alert. Patient informs me that she will be going home shortly. Patient tells me her medical history, the reason for her current hospitalization and the plan going forwrard. Patient talks about her kids and grandkids and how they are an inspiration to her in her push toward health. She also shares about her Catholic tianna and how she was baptized into that baptist. She tearfully talks about the of her . I listen empathically, normalize her experience and provide grief support and prayer. Patient responds well and displays evidence of being comforted and having increased resolve.
--- NOTE | 2020-10-02 16:07 | NUR ---
SHIFT SUMMARY PT AWAKE DURING SHIFT REPORT. A&O, PLEASANT AND CO-OP. PT IS INDEPENDENT IN RM AND TO BTHRM. SITTING TO CHAIR AT BS SINCE GETTING UP FOR BREAKFAST. PT ADMITTED FOR HYPOTENSION R/T UROSEPSIS; RESOLVED. DR BYRNE IN TO SEE PT THIS AM. PT TO D/C TO HOME AFTER IV K PHOS, IV MAG RIDER, AND IV ABX COMPLETE. PT SL AND IV D/C'D WNL'S. PT ABLE TO DRESS HERSELF AND CALLED FOR [facility]. D/C INSTRUCTIONS DISCUSSED WITH PT; VERBALIZED UNDERSTANDING. DENIED FURTHER NEEDS. PT ASSISTED OUT TO [facility] VIA W/C BY STEVIE HUNTER.
== END 2020-10-02 16:01 | disposition home health service (06) | DRG 689 ==
LOC: ER 18:34 → ICUW 18:35 → MEDS 09-30 02:30 → ICUW 09-30 02:35 → MEDS 09-30 22:40 → ENPENDDIS 10-02 11:55 → MEDS 10-02 16:01
PROVIDERS: Emergency Medicine; Internal Medicine; ADMIT Internal Medicine
PROC: 0W993ZZ Drainage of Right Pleural Cavity, Percutaneous Approach (ICD-10-PCS; principal; 2020-09-30)
DX: N39.0 Urinary tract infection, site not specified (principal); G92 Toxic encephalopathy; E87.2 Acidosis; R18.8 Other ascites; J90 Pleural effusion, not elsewhere classified; I95.9 Hypotension, unspecified; Z95.1 Presence of aortocoronary bypass graft; Z90.49 Acquired absence of other specified parts of digestive tract; Z79.82 Long term (current) use of aspirin; Z79.4 Long term (current) use of insulin; K74.69 Other cirrhosis of liver; E87.6 Hypokalemia; K72.90 Hepatic failure, unspecified without coma; E53.8 Deficiency of other specified B group vitamins; E86.0 Dehydration; B96.1 Klebsiella pneumoniae [K. pneumoniae] as the cause of diseases classified elsewhere
CPT/HCPCS: 0241U; 32555; 36415; 71045; 71046; 76705; 80053; 80069; 81001; 82140; 82272; 82607; 82746; 82947; 83605; 83690; 83735; 84443; 84484; 85025; 85610; 87040; 87077; 87086; 87186; 93005; 93010; 96365; 96366; 96375; 97110; 97116; 97162; 99285-25; A9270; G0378; J0696; J3475; J7060; J7120

== ENCOUNTER 2020-11-23 10:05 | Emergency (ER) | payer OTHER ==
[~2020-11-23] VITALS: Ht 160 cm; Wt 74.4 kg
[~2020-11-23 10:05] MED LIST changes: +FOLI400 PO; +LACT10SY PO
[2020-11-23 10:58] LABS: BASOPHILS ABSOLUTE AUTO 0.04 K/mm3 (0.00-0.23); BASOPHILS PERCENT AUTO 1 % (0-2); EOSINOPHILS ABSOLUTE AUTO 0.24 K/mm3 (0.00-0.68); EOSINOPHILS PERCENT AUTO 8 % (0-6); Hematocrit 43.2 % (33.0-51.0); Hemoglobin 14.6 g/dL (11.5-16.0); IMMATURE GRAN PERCENT AUTO 0 % (0-1); LYMPHOCYTES ABSOLUTE AUTO 1.41 K/mm3 (0.84-5.20); LYMPHOCYTES PERCENT AUTO 46 % (21-46); MONOCYTES PERCENT AUTO 10 % (4-13); Mean Corpuscular HGB 29.3 pg (26.0-34.0); Mean Corpuscular HGB Conc 33.8 g/dL (31.5-36.5); Mean Corpuscular Volume 87 fL (80-100); Mean Platelet Volume 9.7 fL (9.1-12.4); NEUTROPHILS PERCENT AUTO 36 % (41-73); Platelet Count 82 K/mm3 (150-400); RDW Coefficient Variation 18.6 % (11.7-14.2); RDW Standard Deviation 58.8 fL (35.1-46.3); Red Blood Cell Count 4.98 M/mm3 (3.80-5.20); White Blood Cell Count 3.09 K/mm3 (4.00-11.30)
[2020-11-23 11:30] LABS: Alanine Aminotransfer (ALT/SGP 54 U/L (12-78); Albumin, Blood 2.8 g/dL (3.4-5.0); Albumin/Globulin Ratio 0.8 (0.8-1.8); Alk Phos 148 U/L (50-136); Anion Gap 9 mmol/L (6-16); Aspartate Aminotrans (AST/SGOT 116 U/L (12-37); Bilirubin, Total 2.5 mg/dL (0.1-1.0); Blood Urea Nitrogen 11 mg/dL (8-24); Bun/Creatinine Ratio 14.9 (12.0-20.0); CO2, Blood 25 mmol/L (21-32); Calcium, Blood 9.3 mg/dL (8.5-10.1); Chloride, Blood 107 mmol/L (98-108); Creatinine, Blood 0.74 mg/dL (0.40-1.00); Globulin, Blood 3.4 g/dL (2.2-4.0); Glomerular Filtration Rate >60 (60-); Glucose, Blood 110 mg/dL (70-99); Potassium, Blood 3.3 mmol/L (3.5-5.5); Sodium, Blood 141 mmol/L (136-145); Total Protein, Blood 6.2 g/dL (6.4-8.2); Troponin I 0.062 ng/mL (0.000-0.040)
[2020-11-23 13:03] LABS: International Normalized Ratio 1.5; Prothrombin Time Results 15.7 Sec (9.7-11.5)
[2020-11-23 13:35] LABS: Influenza A, PCR NEGATIVE (NEGATIVE); Influenza B, PCR NEGATIVE (NEGATIVE); Resp Syncytial Virus, PCR NEGATIVE (NEGATIVE); SARS-Cov-2 (COVID-19) PCR, MMC NEGATIVE (NEGATIVE)
== END 2020-11-23 17:05 | disposition home or self-care (01) ==
LOC: ER 10:05
PROVIDERS: Emergency Medicine
DX: J90 Pleural effusion, not elsewhere classified (principal); E11.9 Type 2 diabetes mellitus without complications; I10 Essential (primary) hypertension; Z98.890 Other specified postprocedural states; Z79.4 Long term (current) use of insulin; Z79.899 Other long term (current) drug therapy; Z20.822 Contact with and (suspected) exposure to COVID-19
CPT/HCPCS: 0241U; 32555; 36415; 71045; 80053; 83880; 84484; 85025; 85610; 93005; 93010; 99285-25

== ENCOUNTER 2020-12-12 14:52 | Inpatient (IN) | payer OTHER, MEDICARE ==
[~2020-12-12] VITALS: Ht 152.4 cm; Wt 72.7 kg
[2020-12-12 15:38] LABS: BASOPHILS ABSOLUTE AUTO 0.03 K/mm3 (0.00-0.23); BASOPHILS PERCENT AUTO 0 % (0-2); EOSINOPHILS ABSOLUTE AUTO 0.01 K/mm3 (0.00-0.68); EOSINOPHILS PERCENT AUTO 0 % (0-6); Hematocrit 41.3 % (33.0-51.0); Hemoglobin 14.6 g/dL (11.5-16.0); IMMATURE GRAN ABSOLUTE AUTO 0.05 K/mm3 (0.00-0.10); IMMATURE GRAN PERCENT AUTO 0 % (0-1); LYMPHOCYTES ABSOLUTE AUTO 0.91 K/mm3 (0.84-5.20); LYMPHOCYTES PERCENT AUTO 8 % (21-46); MONOCYTES ABSOLUTE AUTO 0.48 K/mm3 (0.16-1.47); MONOCYTES PERCENT AUTO 4 % (4-13); Mean Corpuscular HGB 29.7 pg (26.0-34.0); Mean Corpuscular HGB Conc 35.4 g/dL (31.5-36.5); Mean Corpuscular Volume 84 fL (80-100); Mean Platelet Volume 10.3 fL (9.1-12.4); NEUTROPHILS ABSOLUTE AUTO 10.19 K/mm3 (1.96-9.15); NEUTROPHILS PERCENT AUTO 87 % (41-73); Platelet Count 137 K/mm3 (150-400); RDW Coefficient Variation 19.3 % (11.7-14.2); RDW Standard Deviation 57.9 fL (35.1-46.3); Red Blood Cell Count 4.92 M/mm3 (3.80-5.20); White Blood Cell Count 11.67 K/mm3 (4.00-11.30)
[2020-12-12 15:59] LABS: Alanine Aminotransfer (ALT/SGP 54 U/L (12-78); Albumin, Blood 2.6 g/dL (3.4-5.0); Albumin/Globulin Ratio 0.8 (0.8-1.8); Alk Phos 255 U/L (50-136); Anion Gap 14 mmol/L (6-16); Aspartate Aminotrans (AST/SGOT 131 U/L (12-37); Bilirubin, Total 7.4 mg/dL (0.1-1.0); Blood Urea Nitrogen 23 mg/dL (8-24); Bun/Creatinine Ratio 24.9 (12.0-20.0); CO2, Blood 20 mmol/L (21-32); Calcium, Blood 9.4 mg/dL (8.5-10.1); Chloride, Blood 101 mmol/L (98-108); Creatinine, Blood 0.92 mg/dL (0.40-1.00); Globulin, Blood 3.4 g/dL (2.2-4.0); Glomerular Filtration Rate >60 (60-); Glucose, Blood 124 mg/dL (70-99); Potassium, Blood 3.7 mmol/L (3.5-5.5); Sodium, Blood 135 mmol/L (136-145)
[2020-12-12 16:33] LABS: Base Excess Venous -4.5 mmol/L; pH Blood Venous 7.29 (7.34-7.37)
[2020-12-12 17:32] LABS: Influenza A, PCR NEGATIVE (NEGATIVE); Influenza B, PCR NEGATIVE (NEGATIVE); Resp Syncytial Virus, PCR NEGATIVE (NEGATIVE); SARS-Cov-2 (COVID-19) PCR, MMC NEGATIVE (NEGATIVE)
[2020-12-12 18:28] LABS: International Normalized Ratio 1.84
[2020-12-12] MEDS ORDERED: FOLI1 PO (18:31)
[2020-12-12] MEDS ORDERED: POTA10T PO (18:32)
[2020-12-12] MEDS ORDERED: METO25ER PO (18:33)
[2020-12-12 20:16] LABS: Glucose, Body Fluid 126 mg/dL
[2020-12-12 20:18] LABS: Protein, Body Fluid 0.5 g/dL
[2020-12-12 20:25] LABS: Automated BF WBC Count 0.073 K/mm3 (0-999); Body Fluid WBC Count 73 /mm3 (0-999)
[2020-12-12] MEDS ORDERED: LASIX20 M2 PO (20:43)
[2020-12-12 20:50] LABS: RBC Count, Body Fluid 322 /mm3 (0-0)
[2020-12-12 20:53] LABS: Total Cell Count, Body Fluid 100
[2020-12-12 20:54] LABS: Color, Body Fluid Yellow (None-Yellow)
[2020-12-12 20:55] LABS: Appearance, Body Fluid Clear (Clear)
--- NOTE | 2020-12-12 21:17 | NUR ---
ASSUMED CARE OF PATIENT AT APPROXIMATELY 2000 FROM ED RN DEVORA. PATIENT ARRIVED VIA STRETCHER AND TRANSFERRED VIA SLIDE SHEET AND MAX ASSIST FROM ED TO PCU STRETCHER. PATIENT ALERT AND ORIENTED; REPORTS FEELING WEAK FOR THE PAST FEW MONTHS; REQUESTED ASSISTANCE UPON DISCHARGE. PATIENT FORGETFUL AT TIMES; ABLE TO ANSWER QUESTIONS ABOUT HOME MEDICATIONS AND HX. PATIENT DENIES PAIN, NUMBNESS, TINGLING, DIZZINESS AND NAUSEA. ADMISSION COMPLETE. PATIENT REPORTS SHE HASNT BEEN URINATING MUCH DAILY AND SEES DR. CASTELLON OUTPATIENT. ST ON TELE; SBP IN 80-90'S; OXYGEN SATURATION ABOVE 90% ON 4-5LPM VIA NC. IVF STARTED PER ORDER. BEDREST; Q2H TURNS. PATIENT GIVEN WARM BLANKETS DUE TO BE COLD ALL THE TIME. PATIENT SON ACCOMPANIED HER TO ROOM AND LEFT SHORTLY AFTER. PATIENT CURRENTLY RESTING IN BED; CALL LIGHT IN REACH; BED IN LOWEST POSISTION; BED ALARM ON
[2020-12-13 04:44] LABS: BASOPHILS ABSOLUTE AUTO 0.02 K/mm3 (0.00-0.23); BASOPHILS PERCENT AUTO 0 % (0-2); EOSINOPHILS ABSOLUTE AUTO 0.04 K/mm3 (0.00-0.68); EOSINOPHILS PERCENT AUTO 0 % (0-6); Hematocrit 36.6 % (33.0-51.0); Hemoglobin 12.8 g/dL (11.5-16.0); IMMATURE GRAN ABSOLUTE AUTO 0.04 K/mm3 (0.00-0.10); IMMATURE GRAN PERCENT AUTO 0 % (0-1); LYMPHOCYTES ABSOLUTE AUTO 1.27 K/mm3 (0.84-5.20); LYMPHOCYTES PERCENT AUTO 12 % (21-46); MONOCYTES ABSOLUTE AUTO 0.52 K/mm3 (0.16-1.47); MONOCYTES PERCENT AUTO 5 % (4-13); Mean Corpuscular HGB 29.9 pg (26.0-34.0); Mean Corpuscular Volume 86 fL (80-100); Mean Platelet Volume 9.6 fL (9.1-12.4); NEUTROPHILS ABSOLUTE AUTO 8.62 K/mm3 (1.96-9.15); NEUTROPHILS PERCENT AUTO 82 % (41-73); Platelet Count 101 K/mm3 (150-400); RDW Coefficient Variation 19.7 % (11.7-14.2); RDW Standard Deviation 59.7 fL (35.1-46.3); Red Blood Cell Count 4.28 M/mm3 (3.80-5.20); White Blood Cell Count 10.51 K/mm3 (4.00-11.30)
[2020-12-13 05:08] LABS: Alanine Aminotransfer (ALT/SGP 41 U/L (12-78); Albumin, Blood 2.6 g/dL (3.4-5.0); Albumin/Globulin Ratio 0.9 (0.8-1.8); Alk Phos 209 U/L (50-136); Anion Gap 10 mmol/L (6-16); Aspartate Aminotrans (AST/SGOT 106 U/L (12-37); Bilirubin, Total 6.6 mg/dL (0.1-1.0); Blood Urea Nitrogen 25 mg/dL (8-24); Bun/Creatinine Ratio 28.1 (12.0-20.0); CO2, Blood 23 mmol/L (21-32); Calcium, Blood 8.7 mg/dL (8.5-10.1); Chloride, Blood 104 mmol/L (98-108); Creatinine, Blood 0.89 mg/dL (0.40-1.00); Globulin, Blood 2.8 g/dL (2.2-4.0); Glomerular Filtration Rate >60 (60-); Glucose, Blood 124 mg/dL (70-99); Potassium, Blood 3.7 mmol/L (3.5-5.5); Sodium, Blood 137 mmol/L (136-145); Total Protein, Blood 5.4 g/dL (6.4-8.2)
--- NOTE | 2020-12-13 06:06 | NUR ---
PATIENT REPORTS FEELING BETTER; REQUESTED ICE WATER; DR. MORGAN NOTIFIED AND DIET ORDERED. PATIENT UP TO BEDSIDE COMMODE WITH 2 ASSIST; GAIT BELT AND FWW; THEN UP TO RECLINER THIS MORNING. SBP IMPROVED TO 90-100'S.
--- NOTE | 2020-12-13 15:18 | NUR ---
PT UP TO BSC, ON 4-5L O2 VIA NC. WHEN PT GOT BACK TO BED SPO2 77% INCREASED O2 TO 6L AND ENCOURAGED PT TO BREATH IN THROUGH HER NOSE. PLACED ON OXYMIZER AT 9L, SLOWLY RECOVERING TO 90%. RT TO ROOM, PLACED ON 11L O2 VIA HIGH FLOW NC. LS SLIGHTLY MORE DIMINISHED THAN THIS AM ON RIGHT SIDE. WILL NOTIFIY PHYSICIAN. WILL CONTINUE TO MONITOR.
--- NOTE | 2020-12-13 17:55 | NUR ---
Met with pt today; she recently required an increase in her 02 needs. Her 02 sats are around 89% at this time. She is pleasant, alert and oriented. We talked about family, and she tells me she continues living for her 3 children and all her grandchildren. She's looking forward to a phone call with [facility] tomorrow, to see if there is any new treatments available for her, as she is at end stage with her liver disease. She states her 2 sons don't understand much about the medical field, and they have told her to keep fighting, no matter what. However, pt states she knows she does not want to be on a ventilator, and wants to change her code status to DNR. We filled it out together, and she chose DNR with limited interventions. She did not sign the POLST until her best friend and room mate Thu arrived, and approved. Pt's daughter Duong also approves, as she stated during t/c this afternoon. PCU charge gives permission for pt to have 2 people here in the am at 10 for a care conference with [facility] by phone. Depending on whether they accept her for new treatment options, pt will be transferred, or if there are not further treatments available, she will go home on comfort care.
--- NOTE | 2020-12-13 18:18 | NUR ---
SHIFT SUMMARY PT A&Ox3; FORGETFUL AT TIMES. SLOW TO RESPOND. PT RESTING IN BED DURING SHIFT. UP TO BSC; THIS AFTERNOON DESATURATED TO 70'S TITRATED O2 TO 11L O2 VIA NC, PT CONTINUES TO DESATURATE WITH MOVEMENT IN BED, TITRATED TO 14L O2 VIA NC. LS DIM BASES. DR BARRERA NOTIFIED, NEW ORDERS FOR ALBUTEROL INHALER AND THAT WE MAY USE AIRVO. PT DENIES PAIN, CHEST PAIN, AND NAUSEA. PT REPORTS DIZZINESS WHEN GETTING GETTING TO SIDE OF BED. BP SOFT. OTHER VSS. NO OTHER ACUTE CHANGES NOTED. WILL CONTINUE TO MONITOR UNTIL REPORT GIVEN TO ONCOMING RN.
--- NOTE | 2020-12-13 20:11 | NUR ---
CALLED DR. MORGAN REGARDING INCREASE OXYGEN NEEDS AND INCREASED WORK OF BREATHING REPORTED BY RT GOMEZ. PATIENT'S LUNG SOUNDS ON RIGHT SIDE VERY DIMINISHED OR ABSENT. PATIENT WAS ON 14LPM VIA HIGH FLOW NC AND WAS PUT ON BIPAP; NOT TOLERATING WELL DUE TO ANXIETY. ORDERS FOR CHEST XRAY NOW FOR PLEURAL EFFUSION; IV ATIVAN NOW; TRANSFER BACK TO PCU STATUS W/ TELE.
--- NOTE | 2020-12-13 20:24 | NUR ---
PORTABLE CHEST XRAY DONE AT THIS TIME. PATIENT REPORTS "I CANT TAKE IT" REFERRING TO BIPAP MASK; ATIVAN GIVEN PER ORDER.
--- NOTE | 2020-12-13 20:40 | NUR ---
DR. MORGAN BEDSIDE WITH PATIENT; NOT GOING TO DO THORACENTESIS AT THIS TIME BUT HAVING ICU BOMB LOADER PUT SUPPLIES IN ROOM IN CASE A THORACENTESIS MAY NEED TO OCCUR LATER TONIGHT.
--- NOTE | 2020-12-13 21:23 | NUR ---
ATTEMPTED TO CALL DR. MORGAN REGARDING PATIENT OXYGEN SATURATION IN 81-86% ON AIRVO 94% ON 60LPM VIA HUMID HIGH FLOW NC. PATIENT NO LONGER TOLERATING BIPAP AND HAD TAKEN MASK OFF. PATIENT PLACED ON RIGHT SIDE.
--- NOTE | 2020-12-13 21:30 | NUR ---
DR. MORGAN CALLED BACK; NO NEW ORDERS AT THIS TIME.
--- NOTE | 2020-12-13 21:32 | NUR ---
RT LULY CALLED DR. MORGAN BACK AND REPORTED PATIENT NEEDS ABG; ORDER FOR ABG NOW.
[2020-12-13 21:41] LABS: PCO2 Arterial 35.3 mmHg (35-45); PO2 Arterial 57.4 mmHg (80-100); pH Blood Arterial 7.39 (7.35-7.45)
--- NOTE | 2020-12-13 22:20 | NUR ---
DR. BLANTON BEDSIDE DOING THROACENTESIS. ORDERS FOR 500 CC BOLUS NOW AND ALBUMIN
--- NOTE | 2020-12-13 22:25 | NUR ---
PATIENT NOT TOLERATING HIGH FLOW NC ON DURING PROCEDURE; RIPPED OFF AND REPORTS "I DONT CARE IF I ".
--- NOTE | 2020-12-13 22:38 | NUR ---
2L REMOVED VIA THORACENTESIS. PATIENT BP DROPPED TO 74/45 AT 2230; ORDERS FOR 500 ML BOLUS AND ALBUMIN. PATIENT BECAME MORE LETHARGIC; ORDERS FOR REMAZICON 0.2 MG NOW AND 50 MCG FENTANYL. PATIENT BOOSTED IN BED; LETHARGIC; BOLUS AND ALBUMIN CURRENTLY RUNNING; LASTEST BP 82/50
--- NOTE | 2020-12-13 23:12 | NUR ---
CHEST XRAY COMPLETE
--- NOTE | 2020-12-14 00:14 | NUR ---
DR. MORGAN BEDSIDE; GIVE ANOTHER 500 CC BOLUS; TRY CPAP.
--- NOTE | 2020-12-14 01:13 | NUR ---
ASSUMED CARE OF PATIENT AT APPROXIMATELY 1905 FROM FAUSTINO Arevalo RN. PATIENT ALERT AND ORIENTED; FORGETFUL AT TIMES; ABLE TO ANSWER QUESTIONS ABOUT HOME MEDICATIONS AND HX. PATIENT DENIES PAIN, NUMBNESS, TINGLING, DIZZINESS AND NAUSEA. PATIENT DID HAVE SOME PAIN AFTER THORACENTESIS. PATIENT HAS LITTLE URINE OUTPUT AT BASELINE. ST ON TELE; SBP IN 70-90'S; OXYGEN SATURATION ABOVE 90% ON 14 LPM AT START OF SHIFT; TRIED BIPAP BUT UNABLE TO TOLERATE FOR OVER AN HOUR; PLACED ON HIGHFLOW NC HUMIDIFIED MAXED OUT AND HAD 15LPM NRB ON WITH AIRVO MAXED OUT UNTIL AFTER THROACENTESIS; CURRENTLY ON 4-7LPM; PATIENT BREATHS THROUGH MOUTH AND WILL TAKE OXYGEN OFF IF PLACED IN MOUTH. BEDREST; Q2H TURNS. PATIENT CURRENTLY RESTING IN BED; CALL LIGHT IN REACH; BED IN LOWEST POSISTION; BED ALARM ON
[2020-12-14 03:59] LABS: PCO2 Venous 36.1 mmHg (38-42); PO2 Venous 37.8 mmHg (38-42); pH Blood Venous 7.38 (7.34-7.37)
[2020-12-14 04:24] LABS: Anion Gap 11 mmol/L (6-16); Blood Urea Nitrogen 32 mg/dL (8-24); CO2, Blood 21 mmol/L (21-32); Calcium, Blood 8.6 mg/dL (8.5-10.1); Chloride, Blood 106 mmol/L (98-108); Creatinine, Blood 0.92 mg/dL (0.40-1.00); Glomerular Filtration Rate >60 (60-); Glucose, Blood 107 mg/dL (70-99); Potassium, Blood 3.7 mmol/L (3.5-5.5); Sodium, Blood 138 mmol/L (136-145)
--- NOTE | 2020-12-14 05:58 | NUR ---
PATIENT SLEPT ABOUT NINE HOURS LAST NIGHT; PULLED OXYEN OFF MULTIPLE TIMES. BLOOD PRESSURE IMPOVED. RT PUT NRB W/ 13LPM; PATIENT DOESNT TOLERATED NC IN NOSE OR MOUTH. NO OTHER ACUTE CHANGES TO REPORT.
--- NOTE | 2020-12-14 10:29 | NUR ---
Pt placed on comfort measure this morning, as she began to have increased dyspnea, hypotension, and increasing oxygen needs. She has had both lorazepam and roxanol as she is experiencing increased air hunger. Dr. Reynolds was in to see pt and her family. He explained her prognosis is poor, and she doesn't have long. Family is aware. Both pt's daughter and son are at bedside, along with a niece and pt's roommate. 02 mask removed at pt's request, as she is not tolerating it. She is talking on the phone to her oldest son, who is currently some distance away. 2 granddaughters came and left after hugging pt and telling her they loved her. Pt was beaming at seeing many family members at one time. Corrective Therapy Aide Teacherelvie Pual said a prayer with pt at her request. Will remain available to pt and family as needs arise.
--- NOTE | 2020-12-14 11:14 | NUR ---
Chart Writer entered room around 1100 to check on pt who appeared uncomfortabe aeb labored breathing and moaning. Chart Writer gathered then administered IVP lorazepam 0.25 mg at 1105. While grant writer was documenting post administration effectiveness for previous morphine given, pt ceased breathing then had shirin stoke respiration. Family members verbalized to pt "it's okay to let go" and appeared to be in significant emotional distress, this grant writer walked out of the room to allow them some privacy to be with pt during what were likely last moments of life. Shortly after, as this grant writer was debriefing with technical staff engineer that pt was appearing to be actively passing a family member came in the hallway to notify staff that pt had passed, this grant writer and medical staff manager entered room and RN confirmed pt's passing via apical auscultation x 1 min. Family was then told to take their time with the patient and to let staff know when they were ready to leave. After pt's family left post mortem care was provided by this grant writer, preceptor RN, and another RN student.
--- NOTE | 2020-12-14 14:53 | NUR ---
AT start of shift, pt was on NRB mask at 13 l/min delivery, non distressed, but tachypneic at rest. Oxygen saturation was quite variable over noc shift, per RN report this morning. Blood pressure is also low this morning, and in report I was told that blood pressure dropped in ED following thoracentesis as well as overnight. Lung sounds are clear over the left anterior and posterior lung canales. Sinus tachycardia 110 by telemetry monitoring. Pt seems very tired, exhausted. Given sips of water at her request for a very dry mouth. Reported that pt had no urine output at all overnight. Dr. Reynolds here to see the patient this morning, and decision made with family for comfort care. Pt was given medication for anxiety and air hunger. Support given by palliative care RN as well as testing engineer services. Family at bedside, many various family members of all ages present at the bedside with the patient. She did pass and was pronounced by DALE Clarke clinical coodinator. Attending MD notified. Post mortem care provided with assistance
--- NOTE | 2020-12-14 16:26 | NUR ---
Spiritual care note: Met with family in ED. Pt non-responsive, breathing heavily. Prayer and auto club travel counselor well-received. Met again with family after transfer to medical floor. Emotional support given. Mayuri passed peacefully minutes after her sister arrived. Prayer of comendation offered. Family tearful but at peace and appreciative.
--- NOTE | 2020-12-14 16:31 | NUR ---
Present with family throughout pt's decline. Mayuri was lucid for awhile--requesting grand-children to bedside. Numerous family arrived. Facilitated reminising and prayer with family. Mayuri passed peacefully. [facility].
== END 2020-12-14 11:20 | DRG 432 ==
LOC: ER 14:52 → PCU 18:22
PROVIDERS: Emergency Medicine; Internal Medicine; ADMIT Internal Medicine
PROC: 5A09457 Assistance with Respiratory Ventilation, 24-96 Consecutive Hours, Continuous Positive Airway Pressure (ICD-10-PCS; principal; 2020-12-12)
PROC: 0W993ZZ Drainage of Right Pleural Cavity, Percutaneous Approach (ICD-10-PCS; 2020-12-12)
PROC: 0W993ZZ Drainage of Right Pleural Cavity, Percutaneous Approach (ICD-10-PCS; 2020-12-14)
DX: K74.69 Other cirrhosis of liver (principal); E43 Unspecified severe protein-calorie malnutrition; J94.8 Other specified pleural conditions; R64 Cachexia; K72.90 Hepatic failure, unspecified without coma; J44.9 Chronic obstructive pulmonary disease, unspecified; I11.9 Hypertensive heart disease without heart failure; Z20.822 Contact with and (suspected) exposure to COVID-19; G25.81 Restless legs syndrome; Z51.5 Encounter for palliative care; E11.9 Type 2 diabetes mellitus without complications; I10 Essential (primary) hypertension; Z79.82 Long term (current) use of aspirin; Z79.899 Other long term (current) drug therapy; Z88.8 Allergy status to other drugs, medicaments and biological substances; Z88.5 Allergy status to narcotic agent; Z88.6 Allergy status to analgesic agent; Z90.49 Acquired absence of other specified parts of digestive tract; Z98.890 Other specified postprocedural states; Z95.1 Presence of aortocoronary bypass graft
CPT/HCPCS: 0241U; 32555; 36415; 36600; 71045; 71260; 80048; 80053; 82140; 82803; 82945; 82947; 83880; 84157; 84443; 85025; 85610; 87070; 87075; 87205; 88108; 88305; 89051; 93005; 93010; 93970; 94660; 94762; 96374-59; 96375-59; 99285-25; A9270; C1751; J1885; J2060; J3010; J7030; J7040; P9046; Q9967